=== PATIENT | female | born 1990 | race Caucasian/White ===

== ENCOUNTER 2017-01-17 17:35 | Emergency (ER) | payer MEDICARE ==
[2017-01-17 18:30] LABS: BASO % 0.5 % (0.1-1.2); EOS # 0.1 10_X3_uL (0.0-0.4); EOS % 1.6 % (0.7-5.8); GRAN # 4.3 10_X3_uL (1.6-6.1); GRAN % 53.3 % (34.0-71.1); HEMATOCRIT 36.2 % (34-45); LYMPH # 2.8 10_X3_uL (1.2-3.7); LYMPH % 34.5 % (19.3-51.7); MEAN CORPUSCULAR HEMOGLOBIN 30.4 pg (27.0-33.0); MEAN CORPUSCULAR HGB CONC 35.9 g/dL (32.0-36.0); MEAN CORPUSCULAR VOLUME 84.6 fL (79-95); MEAN PLATELET VOLUME 9.5 fl (7.5-11.5); MONO # 0.8 10_X3_uL (0.2-0.9); MONO % 10.1 % (4.7-12.5); PLATELET COUNT 329 x10_3/uL (182-369); RED BLOOD COUNT 4.28 x10_6/uL (3.9-5.2); RED CELL DISTRIBUTION WIDTH 13.1 % (11.7-14.4)
[2017-01-17 18:42] LABS: BLOOD UREA NITROGEN 26 mg/dL (7-18); CALCIUM 9.4 mg/dL (8.7-10.7); CARBON DIOXIDE 23 mmol/L (21-32); CREATININE 0.6 mg/dL (0.6-1.3); GLUCOSE,RANDOM 96 mg/dL (70-99); POTASSIUM 3.7 mmol/L (3.5-5.1); SODIUM 141 mmol/L (136-145)
[2017-01-17 18:45] LABS: ACETAMINOPHEN < 15.0 ug/ml (10.0-30.0); ETHYL ALCOHOL < 10 mg/dl
== END 2017-01-17 19:35 | disposition home or self-care (01) ==
LOC: ER 17:35
PROVIDERS: General Practice
DX: Z02.89 Encounter for other administrative examinations (principal); L03.114 Cellulitis of left upper limb; Z87.898 Personal history of other specified conditions; F17.210 Nicotine dependence, cigarettes, uncomplicated; Z79.899 Other long term (current) drug therapy
CPT/HCPCS: 36415; 80048; 80307; 85025; 93005; 99283-25; G0480